=== PATIENT | male | born 1970 | race Caucasian/White ===

== ENCOUNTER 2019-11-28 12:39 | Emergency (ER) | payer BC, SELFPAY ==
--- NOTE | ~2019-11-28 | XR_ITS ---
EXAMINATION: XR chest 2V EXAM DATE: 11/28/2019 13:11 INDICATION: Tachycardia. Burning sensation in chest. History of reflux. TECHNIQUE: Frontal and lateral projections of the chest obtained and reviewed. There is no prior day dy for comparison. FINDINGS: The lungs are clear. There are no pleural effusions. The cardiomediastinal silhouette is within normal limits. There is no pneumothorax suspected. There are mild bony degenerative changes. IMPRESSION: No acute cardiopulmonary findings. Reviewed, dictated and finalized at location B.
[2019-11-28 12:37] VITALS: BP 190/99; PULSE 100; RESP 18; TEMP 37.7; O2SAT 100
--- NOTE | 2019-11-28 12:44 | ECG_ITS ---
Measurements Intervals [place] Rate: 102 P: 41 IN: 176 QRS: 16 QRSD: 93 T: 27 QT: 329 QTc: 430 Interpretive Statements SINUS TACHYCARDIA NONSPECIFIC ST & T-WAVE ABNORMALITY- INF/LAT LEADS BASELINE WANDER- I, II, AVR, AVL, AVF BORDERLINE ECG Electronically Signed On 11-28-2019 13:22:17 CDT by Santos Diaz D.O.
[2019-11-28] MEDS: ASPIRIN 81 MG CHEWABLE TABLET 324 MG PO (12:50)
--- NOTE | 2019-11-28 13:00 | ED.ARRPALP ---
HPI - Arrhythmia/Palpitations General Chief Complaint: Arrhythmia/Palpitations Stated Complaint: CP Time Seen by Provider: 11/28/19 12:40 Source: patient Mode of arrival: EMS Limitations: no limitations History of Present Illness HPI narrative: This patient is 48 year old male with history of HTN who presents for evaluation of chest pain. He states he had just finished eating 2 hours ago when he developed midsternal chest pain. He describes pain has burning , constant discomfort. He became concerned about the pain so he started feeling his heart race and anxious. He also reports associated nausea. He has had similar pain in the past and he states he went to see PCP . He states he had an EKG performed and he was told his pain was due to heart burn. Today he took peptobismol that helped his pain. He rates his pain as 2/10. Related Data Home Medications Medication Instructions Recorded Confirmed amlodipine 5 mg PO DAILY 11/28/19 11/28/19 lisinopril 20 mg PO DAILY 11/28/19 11/28/19 metoprolol succinate 50 mg PO DAILY 11/28/19 11/28/19 omeprazole 40 mg PO DAILY 11/28/19 11/28/19 Allergies Allergy/AdvReac Type Severity Reaction Status Date / Time No Known Allergies Allergy Verified 11/28/19 12:44 Review of Systems Review of Systems: All systems reviewed & are unremarkable except as noted in HPI and below Constitutional: Constitutional: Reports weakness ENT: Denies sore throat Cardiovascular: Cardiovascular: Reports chest pain, Reports rapid heart rate and Denies radiating jaw, neck or arm pain Respiratory: Respiratory: Denies cough, Denies dyspnea and Denies wheezing Gastrointestinal: Gastrointestinal: Denies abdominal pain, Denies diarrhea, Reports nausea and Denies vomiting Psychiatric: Psychiatric: Reports anxiety PMFSH Past Medical History Medical History (Updated 11/28/19 @ 16:36 by Amira Cook MD) Hypertension Surgical History Surgical History (Updated 11/28/19 @ 13:01 by Amira Cook MD) No significant past surgical history Social History Social History (Updated 11/28/19 @ 13:02 by Amira Cook MD) Smoking status: Never smoker Gender identity (if verbalized by the patient): Male Exam Narrative: Exam Narrative: GENERAL: Well-appearing, well-nourished, and in no acute distress. HEAD: Normocephalic, atraumatic EYES: PERRLA and EOMI, conjunctiva clear without discharge EARS: TM's clear bilaterally without erythema or dullness NOSE: Nares clear, no rhinorrhea or epistaxis THROAT:Mucous membranes moist, Oropharynx normal without erythema, exudate, peritonsillar swelling or fluctuance NECK: Supple, without lymphadenopathy or mass RESPIRATORY: No respiratory distress, Airway patent, Respirations non-labored, Clear to auscultation without rales, rhonchi or wheeze HEART: Regular rate and rhythm. No murmur heard. Normal peripheral pulses. ABDOMEN: Soft, nontender, nondistended, normal active bowel sounds. No masses. No rebound or guarding, No organomegaly. EXTREMITIES: No edema, normal strength with full range of motion. SKIN: Warm, dry, normal color without rash NEURO: Alert and oriented x3. CN 2-12 grossly intact. No focal deficits. PSYCH: Normal mood and affect. Course Reevaluation(s) Reevaluation #1: Patient states his chest pain has resolved. I discussed his troponin is negative. He had mildly elevated lipase but no abdominal pain. He understands he will need to follow up with PCP for further evaluation. Date: 11/28/19 Time: 16:30 Vital Signs Vital signs: Vital Signs Temperature 99.8 F H 11/28/19 12:37 Pulse Rate 100 11/28/19 12:37 Respiratory Rate 18 11/28/19 12:37 Blood Pressure 190/99 H 11/28/19 12:37 Pulse Oximetry 100 11/28/19 12:37 Temperature 99.8 F H 11/28/19 12:37 Pulse Rate 91 11/28/19 15:56 Respiratory Rate 18 11/28/19 15:56 Blood Pressure 172/102 H 11/28/19 15:56 Pulse Oximetry 99 11/28/19 15:56
[2019-11-28 13:12] LABS: Basophils Percent Auto 0.3 % (0.2-1.2); Eosinophils Percent Auto 0.1 % (0-4.4); Hematocrit 45.8 % (42.0-52.0); Hemoglobin 16.1 g/dL (14.0-18.0); Immature Granulocyte Absolute 0.02 K/mm3 (0.00-0.031); Immature Granulocyte Percent A 0.3 % (0-0.5); Lymphocytes Absolute Auto 1.05 K/mm3 (0.9-3.2); Mean Corpuscular HGB Conc 35.2 g/dl (32-36); Mean Corpuscular Hemoglobin 31.4 pg (26-34); Mean Corpuscular Volume 89.5 fl (80-100); Mean Platelet Volume 9.5 fl (7.4-10.4); Monocytes Absolute Auto 0.4 K/mm3 (0.1-0.6); Monocytes Percent Auto 5.6 % (2.6-8.5); Neutrophils Absolute Auto 5.5 K/mm3 (1.3-6.7); Neutrophils Percent Auto 78.7 % (45.5-73.1); Platelet Count Result 217 k/mm3 (150-375); Red Blood Count 5.12 M/mm3 (4.6-6.20); Red Cell Distribution Width 11.9 % (11.5-14.5)
[2019-11-28 13:21] LABS: INR 1.1; Prothrombin Time 13.6 Seconds (11.1-14.7)
[2019-11-28 13:22] LABS: Partial Thromboplastin Time 24.7 SECONDS (22.3-36.8)
[2019-11-28 13:27] LABS: Lactic Acid Reflex 2.9 mmol/L (0.7-2.1)
[2019-11-28 13:34] LABS: Alanine Aminotransferase 28 U/L (4-50); Albumin Level 4.5 g/dL (3.5-5.1); Alkaline Phosphatase 74 U/L (38-126); Aspartate Amino Transferase 33 U/L (17-59); Bilirubin,Total 0.5 mg/dL (0.2-1.3); Blood Urea Nitrogen 11 mg/dL (9-20); Calcium 9.1 mg/dL (8.4-10.2); Carbon Dioxide 27 mmol/L (22-30); Chloride 104 mmol/L (98-107); Estimated CRCL calculation 102 ml/min; Estimated Glomerular Filt Rate > 60; Glucose 147 mg/dL (75-110); Lipase 319 U/L (23-300); Magnesium 1.9 mg/dL (1.6-2.3); Potassium 3.6 mmol/L (3.4-5.0); Sodium 140 mmol/L (137-145)
[2019-11-28 13:45] LABS: Troponin I < 0.012 ng/mL (0.000-0.034)
[2019-11-28] MEDS: SODIUM CHLORIDE 0.9% IV 1,000 ML 999 ML IV CONT (13:56)
[2019-11-28] MEDS: BELLADONNA ALK/PHENOB ELIX 10 ML, MAG HYDROX/ALUMINUM HYD/SIMETH 30 ML, LIDOCAINE HCL 2... PO (13:56)
[2019-11-28 15:02] LABS: D Dimer 0.27 ug/mL (<0.48)
[2019-11-28 15:56] VITALS: BP 172/102; PULSE 91; RESP 18; O2SAT 99
[2019-11-28 16:11] LABS: Reflex Lactic Acid Yes or No Add Lactic
[2019-11-28 16:15] LABS: Troponin I < 0.012 ng/mL (0.000-0.034)
== END 2019-11-28 16:46 | disposition home or self-care (01) ==
PROVIDERS: Emergency Provider General Practice
DX: R00.2 Palpitations (principal); R07.9 Chest pain, unspecified; I10 Essential (primary) hypertension
CPT/HCPCS: 36415; 71046; 80048; 80076; 83605; 83690; 83735; 84484; 85025; 85380; 85610; 85730; 93005; 96360; 99284; A9270; J7030

== ENCOUNTER 2020-12-15 12:37 | Observation (INO) | payer BC, SELFPAY ==
[2020-12-15] VITALS (10 sets, daily range): BP systolic 133–160; BP diastolic 76–108; PULSE 71–147; RESP 16–22; TEMP 36.1–36.6; O2SAT 96–99; BMI 31.8
--- NOTE | ~2020-12-15 | XR_ITS ---
EXAMINATION: XR chest 2V DATE: 12/15/2020 13:25 INDICATION: Palpitations. Nausea. TECHNIQUE: Frontal and lateral views of the chest were obtained. COMPARISON: Chest 2 views 11/28/2019 FINDINGS: The chest demonstrates clear lungs without pneumonia, pleural effusion, or pneumothorax. Th e heart size is normal. There is mild chronic anterior wedging of multiple lower thoracic vertebral b odies. IMPRESSION: 1. No acute cardiopulmonary disease. Reviewed, dictated and finalized at location A.
--- NOTE | 2020-12-15 12:41 | ECG_ITS ---
Measurements Intervals [place] Rate: 148 P: [place]: 0 QRS: 25 QRSD: 79 T: -71 QT: 266 QTc: 418 Interpretive Statements ATRIAL FIBRILLATION WITH RAPID VENTRICULAR RESPONSE BORDERLINE ST-T WAVE ABNORMALITY- INF/LAT LEADS ABNORMAL ECG Electronically Signed On 12-15-2020 12:49:26 CDT by Santos Diaz D.O.
[2020-12-15 12:59] LABS: Basophils Percent Auto 0.2 % (0.2-1.2); Eosinophils Absolute Auto 0.1 K/mm3 (0-0.3); Eosinophils Percent Auto 0.7 % (0-4.4); Hematocrit 47.8 % (42.0-52.0); Hemoglobin 16.6 g/dL (14.0-18.0); Immature Granulocyte Absolute 0.03 K/mm3 (0.00-0.031); Immature Granulocyte Percent A 0.3 % (0-0.5); Lymphocytes Absolute Auto 2.38 K/mm3 (0.9-3.2); Lymphocytes Percent Auto 23.2 % (18.3-44.2); Mean Corpuscular HGB Conc 34.7 g/dl (32-36); Mean Corpuscular Hemoglobin 31.4 pg (26-34); Mean Corpuscular Volume 90.4 fl (80-100); Mean Platelet Volume 9.8 fl (7.4-10.4); Monocytes Absolute Auto 0.7 K/mm3 (0.1-0.6); Monocytes Percent Auto 6.3 % (2.6-8.5); Neutrophils Absolute Auto 7.1 K/mm3 (1.3-6.7); Neutrophils Percent Auto 69.3 % (45.5-73.1); Platelet Count Result 221 k/mm3 (150-375); Red Blood Count 5.29 M/mm3 (4.6-6.20); Red Cell Distribution Width 12.1 % (11.5-14.5); White Blood Count 10.3 K/mm3 (4.5-10.0)
[2020-12-15 13:10] LABS: Anion Gap 10 mmol/L (8-16); Blood Urea Nitrogen 14 mg/dL (9-20); Calcium 9.9 mg/dL (8.4-10.2); Carbon Dioxide 26 mmol/L (22-30); Chloride 104 mmol/L (98-107); Estimated CRCL calculation 113 ml/min; Estimated Glomerular Filt Rate > 60; Glucose 186 mg/dL (75-110); Potassium 3.8 mmol/L (3.4-5.0); Sodium 140 mmol/L (137-145)
[2020-12-15 13:16] LABS: Prothrombin Time 12.8 Seconds (11.1-14.7)
[2020-12-15 13:18] LABS: Partial Thromboplastin Time 24.6 SECONDS (22.3-36.8)
[2020-12-15 13:21] LABS: Troponin I < 0.012 ng/mL (0.000-0.034)
--- NOTE | 2020-12-15 14:34 | ED.ARRPALP ---
HPI - Arrhythmia/Palpitations General Chief Complaint: Arrhythmia/Palpitations Stated Complaint: palpations Time Seen by Provider: 12/15/20 13:45 Source: patient and RN notes reviewed Mode of arrival: ambulatory Limitations: no limitations History of Present Illness HPI narrative: This is a 49 year old male with history of hypertension who presents for evaluation of heart palpitations and racing. Patient states around 10 am this morning after riding his bike, he felt his heart make a thud . He states it was being irregular and his watch said it was beating fast. He denies associated chest pain or sob. He has intermittent lightheaded with standing. He does reports nausea. He states 2 months he had a similar episode but it resolved in minutes. He was seen by his PCP . He states at that time his watch showed EKG rhythm stating atrial fibrillation. He takes metoprolol 50 mg daily, amlodipine 5 mg daily and lisinopril 20 mg daily. He has taken his medications today. Related Data Home Medications Medication Instructions Recorded Confirmed amlodipine 5 mg PO DAILY 11/28/19 12/15/20 lisinopril 20 mg PO DAILY 11/28/19 12/15/20 metoprolol succinate 50 mg PO DAILY 11/28/19 12/15/20 omeprazole 40 mg PO DAILY 11/28/19 12/15/20 Allergies Allergy/AdvReac Type Severity Reaction Status Date / Time No Known Allergies Allergy Verified 12/15/20 13:16 Review of Systems Review of Systems: All systems reviewed & are unremarkable except as noted in HPI and below PMFSH Past Medical History Medical History Hypertension Surgical History Surgical History No significant past surgical history Social History Social History (Updated 12/15/20 @ 14:41 by Amira Cook MD) Smoking status: Never smoker Alcohol intake: former Substance use: former Substance use type: marijuana Last use: 1989 Gender identity (if verbalized by the patient): Male Spiritual care concerns: No Exam Const: General: alert Orientation/consciousness: patient oriented x3 Eyes: EOM: EOMs intact bilaterally Resp: Effort & Inspection: normal respiratory effort and no retractions Auscultation: clear to auscultation bilaterally Cardio: Rate: tachycardic Rhythm: abnormal rhythm irregularly irregular Heart sounds: no murmurs GI: GI Palp: Yes Soft to palpation, No Tenderness to palpation present (GI) and No Guarding due to palpation present (GI) Neuro: General: patient oriented x3, moves all extremities and CN's II-XI intact bilaterally Extrem: General: normal to inspection Psych: Mental Status: mental status grossly normal Affect: normal affect Course Reevaluation(s) Reevaluation #1: I discussed with patient plan to admit on diltiazem drip for his atrial fibrillation. Date: 12/15/20 Time: 15:15 Consultations Consultation #1: I discussed case with Dr. Charles. He agrees to admit patient to his service. He does not recommend anticoagulation at this point. He states patient only needs aspirin at this time Date: 12/15/20 Time: 15:00 Vital Signs Vital signs: Vital Signs Temperature 97.8 F 12/15/20 12:42 Pulse Rate 139 H 12/15/20 12:42 Respiratory Rate 20 12/15/20 12:42 Blood Pressure 155/108 H 12/15/20 12:42 Pulse Oximetry 99 12/15/20 12:42 Temperature 96.9 F L 12/15/20 20:00 Pulse Rate 74 12/15/20 22:00 Respiratory Rate 20 12/15/20 20:00 Blood Pressure 133/76 12/15/20 20:00 Pulse Oximetry 99 12/15/20 20:00 MDM - Arrhythmia/Palpitations Lab Data Attestation: I reviewed the patient's lab results. Result diagrams: 12/15/20 12:50 12/15/20 12:50 Labs: Lab Results 12/15/20 12/15/20 12/15/20 Range/Units 12:50 12:50 12:50 WBC 10.3 H (4.5-10.0) K/mm3 RBC 5.29 (4.6-6.20) M/mm3 Hgb 16.6 (14.0-18.0) g/dL Hct 47.8 (42.0-52.0)
[2020-12-15] MEDS: dilTIAZem HCl INJ 25 MG/5 ML VIAL 10 MG IV PUSH (14:38)
[2020-12-15] MEDS: ASPIRIN 81 MG CHEWABLE TABLET 324 MG PO (14:39)
[2020-12-15 15:58] LABS: Troponin I 0.013 ng/mL (0.000-0.034)
--- NOTE | 2020-12-15 16:46 | ADMGEN ---
This patient, James Kaur II, was admitted to IMU Room 209-01. Patient/family oriented to hospital policies and general routines including ID bracelet, bed and alarms, visiting hours, pain management, procedures, bathroom and other care routines, personal items, smoking policy, room service/diet, and visiting hours. Information on how to activate the Rapid Response Team has been discussed. Patient/Family are encouraged to report perceived risks to care and to ask questions if they do not understand what they are told or what they should do.
[2020-12-15 20:17] LABS: Troponin I 0.019 ng/mL (0.000-0.034)
[2020-12-15] MEDS: dilTIAZem HCL 60 MG TABLET PO (23:16)
[2020-12-16] VITALS (7 sets, daily range): BP systolic 121–136; BP diastolic 70–82; PULSE 61–94; RESP 14–20; TEMP 36.4–37.3; O2SAT 98–100
--- NOTE | 2020-12-16 04:03 | ECG_ITS ---
Measurements Intervals [place] Rate: 66 P: 8 CT: 191 QRS: 13 QRSD: 90 T: -13 QT: 396 QTc: 415 Interpretive Statements SINUS RHYTHM NONSPECIFIC T-WAVE ABNORMALITY- INF/LAT LEADS BASELINE ARTIFACT- II, III, AVF BORDERLINE ECG Electronically Signed On 12-16-2020 6:56:18 CDT by Santos Diaz D.O.
[2020-12-16] MEDS: dilTIAZem HCL 60 MG TABLET PO (06:07)
--- NOTE | 2020-12-16 07:58 | PM.CNCAR ---
History of Present Illness History of Present Illness Consult date/time: 12/16/20 07:58 HTN, prior alcohol use (rare use over the last year), obesity, saw it desktop support specialist last year for chest pain and had negative stress test Snores sometimes. Sleep 4-5 hours per night never smoker Reason For Visit: new onset atrial fibrillation with RVR PMFSH Past Medical History Medical History Hypertension Surgical History Surgical History No significant past surgical history Social History Social History (Updated 12/15/20 @ 14:41 by Amira Cook MD) Smoking status: Never smoker Alcohol intake: former Substance use: former Substance use type: marijuana Last use: 1989 Gender identity (if verbalized by the patient): Male Spiritual care concerns: No Meds Home Medications and Allergies Home Medications Medication Instructions Recorded Confirmed Type amlodipine 5 mg PO DAILY 11/28/19 12/15/20 History lisinopril 20 mg PO DAILY 11/28/19 12/15/20 History metoprolol succinate 50 mg PO DAILY 11/28/19 12/15/20 History omeprazole 40 mg PO DAILY 11/28/19 12/15/20 History Allergies Allergy/AdvReac Type Severity Reaction Status Date / Time No Known Allergies Allergy Verified 12/15/20 13:16 Vital Signs Vital Signs - 24 hr 12/15/20 12:42 12/15/20 13:16 12/15/20 13:28 Temperature 36.6 C Pulse Rate 139 H 147 H 130 H Respiratory Rate 20 16 22 H Blood Pressure 155/108 H 160/95 H 133/99 H Pulse Oximetry 99 97 98 12/15/20 13:53 12/15/20 14:44 12/15/20 16:13 Temperature Pulse Rate 133 H 108 H 114 H Respiratory Rate 20 20 20 Blood Pressure 144/103 H 137/83 145/92 H Pulse Oximetry 97 96 97 12/15/20 16:53 12/15/20 18:00 12/15/20 20:00 Temperature 36.4 C 36.1 C L Pulse Rate 108 H 71 74 Respiratory Rate 20 20 Blood Pressure 143/91 H 133/76 Pulse Oximetry 97 99 12/15/20 22:00 12/16/20 00:00 12/16/20 02:00 Temperature 36.4 C Pulse Rate 74 66 61 Respiratory Rate 20 Blood Pressure 121/70 Pulse Oximetry 100 12/16/20 03:29 12/16/20 04:00 12/16/20 06:00 Temperature 36.4 C Pulse Rate 72 61 68 Respiratory Rate 20 20 Blood Pressure 136/71 Pulse Oximetry 99 99 12/16/20 07:44 Temperature 37.3 C Pulse Rate 94 Respiratory Rate 14 Blood Pressure 136/82 Pulse Oximetry 98 Results Labs and Meds Result diagrams: 12/15/20 12:50 12/15/20 12:50 Lab results: Cardiac Enzymes 12/15/20 12/15/20 12/15/20 Range/Units 12:50 15:28 19:27 Troponin I < 0.012 0.013 0.019 D (0.000-0.034) ng/mL Coagulation 12/15/20 Range/Units 12:50 PT 12.8 (11.1-14.7) Seconds APTT 24.6 (22.3-36.8) SECONDS CBC 12/15/20 Range/Units 12:50 WBC 10.3 H (4.5-10.0) K/mm3 RBC 5.29 (4.6-6.20) M/mm3 Hgb 16.6 (14.0-18.0) g/dL Hct 47.8 (42.0-52.0) % Plt Count 221 (150-375) k/mm3 Lymph # (Auto) 2.38 (0.9-3.2) K/mm3 [place] # (Auto) 0.7 H (0.1-0.6) K/mm3 Eos # (Auto) 0.1 (0-0.3) K/mm3 Baso # (Auto) 0.0 (0.0-0.1) K/mm3 Comprehensive Metabolic Panel 12/15/20 Range/Units 12:50 Sodium 140 (137-145) mmol/L Potassium 3.8 (3.4-5.0) mmol/L Chloride 104 (98-107) mmol/L Carbon Dioxide 26 (22-30) mmol/L BUN 14 (9-20) mg/dL Creatinine 0.80 (0.7-1.3) mg/dL Glucose 186 H (75-110) mg/dL Calcium 9.9 (8.4-10.2) mg/dL Intake and Output 12/15/20 12/15/20 12/16/20 15:59 23:59 07:59 Output Total 400 1200 Balance -400 -1200 Output: Urine 400 1200 Patient Weight 12/16/20 23:59 Weight 100.2 kg
--- NOTE | 2020-12-16 08:00 | ECHO_ITS ---
Patient Info Name: James Kaur Age: 49 years : 1970 Gender: Male Ht: 70 in Wt: 222 lbs BSA: 2.26 m2 HR: 80 bpm BP: 136 / 71 mmHg Technical Quality: Good Exam Date: 12/16/2020 8:31 AM Exam Location: [facility] Pul[facility] Patient Status: Outpatient Admit Date: 12/15/2020 Staff Ordering Physician: Gurdeep Charles MD Operating Room Scheduler: Jonas Sarmiento, REGGIE, RT Attending Provider: Gurdeep Charles MD Exam Type: CA echo doppler color flow Study Info Indications I48.0 - Paroxysmal atrial fibrillation Complete two-dimensional, color flow and Doppler transthoracic echocardiogram is performed. Strain analysis performed. Summary 1. Complete two-dimensional, color flow and Doppler transthoracic echocardiogram is performed. 2. Left ventricular systolic function is normal, estimated at 60-65%. Left Ventricle Left ventricular chamber dimension is normal. Left ventricular systolic function is normal, estimated at 60-65%. There is no increased left ventricular wall thickness. Left ventricular septal wall motion is normal. The left ventricular diastolic function is normal. Right Ventricle Right ventricular chamber dimension is normal. Right ventricular systolic function is normal. Left Atria Left atrial chamber dimension is normal. Right Atria Right atrial chamber dimension is normal. Aortic Valve The aortic valve is trileaflet. There is no aortic valve sclerosis. There is no aortic valve stenosis. There is no aortic valve regurgitation. Pulmonic Valve The pulmonic valve is normal. There is no pulmonic valve stenosis. There is no pulmonic regurgitation. Mitral Valve The mitral valve has normal leaflets. There is no mitral valve stenosis. There is trace mitral valve regurgitation. Tricuspid Valve The tricuspid valve leaflets are normal. There is no significant tricuspid valve stenosis. There is no tricuspid valve regurgitation. Pericardium/Pleural The pericardium appears normal. There is no pericardial effusion. Aorta The aortic root size at the sinus of Valsalva is normal. The prox ascending aorta size is normal. Left Ventricular Outflow Tract Name Value Normal LVOT 2D LVOT Diameter 2.2 cm LVOT Doppler LVOT Peak Gradient 7 mmHg LVOT Mean Gradient 4 mmHg LVOT VTI 23 cm LVOT VTI/AV VTI Ratio 0.8 LVOT Stroke Volume 89 ml LVOT CO 7.9 l/min LVOT CI 3.5 l/min/m2 Mitral Valve Name Value Normal MV Doppler MV Decel [place] 346 cm/s2 MV PHT 70 ms MV Area (PHT) 3.1 cm2 4.0-5.0 MV Diastolic Function
--- NOTE | 2020-12-16 08:59 | PM.IMHP ---
H&P: HPI History of Present Illness Date/Time: 12/16/20 08:59 49 y/o male with no known cardiac history, medical history of obesity and HTN who presents with palpitations He reports palpitations shortly after finished exercise riding his bike around 10 in the morning. He put on his smart watch that reported A fib. His HR was ranging between 80 and 120 per his smart which is much higher than his baseline which typically runs around 50-60s. He came to ER where he was found to be in A fib with RVR. He converted to normal sinus rhythm around 3:00 am he feels back to normal now and would like to go home. He had similar episode in October when he is watch also reported A fib but it was short episode. He has been on Metoprolol for years and states that is being used for HTN. He has prior alcohol use but now drinks rarely, his last drink was on Wednesday saw manager wireless last year for chest pain and had negative stress test Snores sometimes. Sleep 4-5 hours per night never smoker Father had heart attack is his early 70s Chief Complaint: Palpitations Review of Systems Review of Systems: All systems reviewed & are unremarkable except as noted in HPI and below Constitutional: Constitutional: Denies fatigue and Denies headache(s) Eyes: Eyes: Denies blurry vision ENT: Reports Normal hearing present and Denies headache(s) Cardiovascular: Cardiovascular: Denies chest pain, Denies diaphoresis, Denies pedal edema, Denies leg edema, Denies lightheadedness, Denies palpitations and Denies dyspnea Respiratory: Respiratory: Denies cough and Denies dyspnea Gastrointestinal: Gastrointestinal: Denies abdominal pain Musculoskeletal: Musculoskeletal: Denies back pain Neurologic: Reports Normal hearing present and Denies headache(s) Psychiatric: Psychiatric: Denies anxiety Endocrine: Endocrine: Denies fatigue and Denies palpitations [facility] Past Medical History Medical History Hypertension Surgical History Surgical History No significant past surgical history Social History Social History (Updated 12/15/20 @ 14:41 by Amira Cook MD) Smoking status: Never smoker Alcohol intake: former Substance use: former Substance use type: marijuana Last use: 1989 Gender identity (if verbalized by the patient): Male Spiritual care concerns: No Meds Home Medications and Allergies Home Medications Medication Instructions Recorded Confirmed Type amlodipine 5 mg PO DAILY 11/28/19 12/15/20 History lisinopril 20 mg PO DAILY 11/28/19 12/15/20 History metoprolol succinate 50 mg PO DAILY 11/28/19 12/15/20 History omeprazole 40 mg PO DAILY 11/28/19 12/15/20 History aspirin 325 mg PO DAILY #30 tablet 12/16/20 Rx Allergies Allergy/AdvReac Type Severity Reaction Status Date / Time No Known Allergies Allergy Verified 12/15/20 13:16 Vital Signs Vital Signs - 24 hr 12/15/20 12:42 12/15/20 13:16 12/15/20 13:28 Temperature 36.6 C Pulse Rate 139 H 147 H 130 H Respiratory Rate 20 16 22 H Blood Pressure 155/108 H 160/95 H 133/99 H Pulse Oximetry 99 97 98 12/15/20 13:53 12/15/20 14:44 12/15/20 16:13 Temperature Pulse Rate 133 H 108 H 114 H Respiratory Rate 20 20 20 Blood Pressure 144/103 H 137/83 145/92 H Pulse Oximetry 97 96 97 12/15/20 16:53 12/15/20 18:00 12/15/20 20:00 Temperature 36.4 C 36.1 C L Pulse Rate 108 H 71 74 Respiratory Rate 20 20 Blood Pressure 143/91 H 133/76 Pulse Oximetry 97 99 12/15/20 22:00 12/16/20 00:00 12/16/20 02:00 Temperature 36.4 C Pulse Rate 74 66 61 Respiratory Rate 20 Blood Pressure 121/70 Pulse Oximetry 100 12/16/20 03:29 12/16/20 04:00 12/16/20 06:00 Temperature 36.4 C Pulse Rate 72 61 68 Respiratory Rate 20 20 Blood Pressure 136/71 Pulse Oximetry 99 99 12/16/20 07:44 Temperature 37.3 C Pulse Rate 94 Respiratory Rate 1
--- NOTE | 2020-12-16 08:59 | PM.DS ---
DS: Admitting Diagnosis Admitting Diagnosis Admitting Diagnosis: Atrial fibrillation with RVR DS: Discharge Diagnosis Discharge Diagnosis (1) Atrial fibrillation with rapid ventricular response: Code(s): I48.91 - Unspecified atrial fibrillation Status: Acute Assessment and Plan: Converted to sinus rhythm over night He has paroxysmal A fib in the setting of mild alcohol use and possible sleep apnea 2D echo showed preserved LV function and no significant valve disease. Suboptimal TR jet to assess PA systolic pressure (full report to follow) Will continue current dose of Metoprolol 50 mg daily as at home. Would not increase Metoprolol dose given sinus bradycardia May consider rhythm control approach if he has more episodes of A fib, possibly with Flecainide He is stable for discharge from cardiac standpoint His CHADsVASc score is 1 (HTN). Will start ASA for now need follow up in 1 week need arrangement for sleep study in outpatient settings (2) HTN (hypertension): Code(s): I10 - Essential (primary) hypertension Status: Acute Assessment and Plan: well controlled DS: Summary Hospital Course Hospital Course: Please refer to assessment and plan Time Spent with Patient Time attestation: Total time spent providing and/or coordinating discharge services: Exam Const: General: no acute distress Eyes: Sclera: sclerae normal Neck: Neck: no JVD Carotids: no bruits Resp: Effort & Inspection: normal respiratory effort Auscultation: clear to auscultation bilaterally Cardio: Rate: regular rate and not tachycardic Rhythm: regular rhythm Heart sounds: no gallops, no murmurs and no rubs Skin: General skin exam: normal color Neuro: Cranial nerves: Yes Normal hearing present Speech: normal speech Extrem: General: normal to inspection and no edema Psych: Affect: normal affect DS: Data Data Completed and Pending Labs on day of discharge: Labs from last 24 hours 12/15/20 12/15/20 12/15/20 19:27 15:28 12:50 WBC RBC Hgb Hct MCV MCH MCHC RDW Plt Count MPV Immature Gran % (Auto) Neut % (Auto) Lymph % (Auto) [place] % (Auto) Eos % (Auto) Baso % (Auto) Lymph # (Auto) [place] # (Auto) Eos # (Auto) Baso # (Auto) Abs Immat Gran (auto) Absolute Neuts (auto) Absolute Nucleated RBC Nucleated RBC % PT INR APTT Sodium 140 Potassium 3.8 Chloride 104 Carbon Dioxide 26 Anion Gap 10 BUN 14 Creatinine 0.80 Estim Creat Clear Calc 113 Estimated GFR > 60 Glucose 186 H Calcium 9.9 Troponin I 0.019 D 0.013 < 0.012 12/15/20 12/15/20 12:50 12:50 WBC 10.3 H RBC 5.29 Hgb 16.6 Hct 47.8 MCV 90.4 MCH 31.4 MCHC 34.7 RDW 12.1 Plt Count 221 MPV 9.8 Immature Gran % (Auto) 0.3 Neut % (Auto) 69.3 Lymph % (Auto) 23.2 [place] % (Auto) 6.3 Eos % (Auto) 0.7 Baso % (Auto) 0.2 Lymph # (Auto) 2.38 [place] # (Auto) 0.7 H Eos # (Auto) 0.1 Baso # (Auto) 0.0 Abs Immat Gran (auto) 0.03 Absolute Neuts (auto) 7.1 H Absolute Nucleated RBC 0.0 Nucleated RBC % 0.0 PT 12.8 INR 1.0 APTT 24.6 Sodium Potassium Chloride Carbon Dioxide Anion Gap BUN Creatinine Estim Creat Clear Calc Estimated GFR Glucose Calcium Troponin I Discharge Plan Discharge Attending physician on discharge: Izzy Andino Discharging Clinician: Izzy Andino Anticipated Discharge Date/Time: 12/16/20 09:00 Patient Disposition: Home, Self-Care Activity: as tolerated Diet: as tolerated Patient Instructions: Antibiotic Form Stand Alone Forms: General Discharge Information Follow-up/Referrals: Gurdeep Charles MD [Physician] - (You will be called with appointment ) Discharge Medications: New aspirin 325 mg tablet 325 mg PO DAILY Qty: 30 RF: 0 Continued metoprolol succinate 50 m
== END 2020-12-16 10:12 | disposition home or self-care (01) ==
LOC: ANHED 15:31 → ANHIMU 16:38
PROVIDERS: Emergency Medicine; Admitting Provider Specialist; Emergency Provider General Practice; Visit Provider Internal Medicine
DX: R00.2 Palpitations (principal); I48.91 Unspecified atrial fibrillation; E66.9 Obesity, unspecified; I10 Essential (primary) hypertension; Z68.37 Body mass index [BMI] 37.0-37.9, adult
CPT/HCPCS: 36415; 71046; 80048; 84484; 85025; 85610; 85730; 93005; 93306; 96361; 96365; 96366; 99285; A9270; G0378